=== PATIENT | male | born 1975 | race Caucasian/White ===

== ENCOUNTER 2022-10-02 21:35 | Emergency (ER) | payer OTHER ==
[2022-10-02 22:18] VITALS: RESP 18; TEMP 98.1
--- NOTE | 2022-10-02 22:58 | XR ---
EXAMINATION TYPE: XR ankle limited LT DATE OF EXAM: 10/02/2022 COMPARISON: None HISTORY: Injury TECHNIQUE: 2 view left ankle FINDINGS: Ankle mortise is intact. Soft tissues are normal. No acute fracture or dislocation is evide nt. IMPRESSION: 1. No acute osseous abnormality left ankle.
[2022-10-02 23:16] VITALS: BP 143/79; PULSE 93
[2022-10-03] MEDS ORDERED: ACET/COD 300 MG/30 MG STARTER PACK 6 TAB BTL PO STA (00:24)
--- NOTE | 2022-10-03 00:25 | ED ---
General Adult HPI - General Chief complaint: Extremity Injury, Lower Stated complaint: Left Ankle Injury Time Seen by Provider: 10/02/22 23:06 Source: patient, RN notes reviewed, old records reviewed Mode of arrival: ambulatory Limitations: no limitations - History of Present Illness Initial comments: Patient is a 46-year-old male presents emergency Department complaining of left posterior leg pain. Was playing pickle ball when he felt a popping sensation in the back of his left leg near the ankle. It difficulty walking afterwards. This occurred earlier today. After doing some research online, was concerned it may be an Achilles tendon injury. Presents for further evaluation. No neurosensory deficits. Difficulty with movement of the left ankle and foot but is able to plantar and dorsiflex, although it is weak. Lucio test is also weak. Presents for further evaluation at this time. Denies any other injuries. - Related Data Previous Rx's Medication Instructions Recorded Cyclobenzaprine [Flexeril] 5 mg PO TID PRN 5 Days #15 tablet 10/03/22 Allergies Allergy/AdvReac Type Severity Reaction Status Date / Time No Known Allergies Allergy Verified 10/02/22 22:18 Review of Systems ROS Statement: Those systems with pertinent positive or pertinent negative responses have been documented in the HPI. Review of Systems: CONST: Denies fever EYES: Denies blurry vision ENT: Denies nasal congestion C/V: Denies Chest pain RESP: Denies shortness of breath GI: Denies abdominal pain : Denies dysuria SKIN: Denies rash. MSK: Endorses left ankle pain NEURO: Denies headache ROS Other: All systems not noted in ROS Statement are negative. Past Medical History Past Medical History: No Reported History History of Any Multi-Drug Resistant Organisms: None Reported Additional Past Surgical History / Comment(s): ACL Past Psychological History: No Psychological Hx Reported Smoking Status: Never smoker Past Alcohol Use History: Occasional Past Drug Use History: None Reported General Exam - General Exam Comments Initial Comments: General: Appears in no acute distress. HEAD: Normal with no signs of head trauma. EYES: EOMI. ENT: Hearing grossly intact. RESPIRATORY: No respiratory distress. C/V: Regular rate and rhythm. ABD: Abdomen is nondistended. EXT: No obvious deformity. Tends to palpation over the Achilles tendon distally in the posterior left leg. Lucio test is weak. Able to dorsi flex as well as plantarflex, although it is weak on the left side. Neurovascular intact. SKIN: No rashes or lesions observed on exposed skin. NEURO: Alert and oriented. Limitations: no limitations Course Vital Signs 10/02/22 10/02/22 22:13 23:11 Temperature 98.1 F Pulse Rate 96 93 Respiratory 18 18 Rate Blood Pressure 136/82 143/79 O2 Sat by Pulse 98 97 Oximetry Procedures - Orthopedic Splinting/Casting Injury #1 Side: left Lower Extremity Injury Location: short leg Lower Extremity Immobilizer: posterior splint Other Orthopedic Equipment: crutches Additional Comments: Neurovascular intact following procedure Medical Decision Making - Medical Decision Making Was pt. sent in by a medical professional or institution (, PA, PERFECT BIND MACHINE OPERATOR, urgent care, hospital, or custodial...) When possible be specific @ -No Did you speak to anyone other than the patient for history (EMS, parent, family, police, friend...)? What history was obtained from this source @ -No Did you review nursing and triage notes (agree or disagree)? Why? @ -I reviewed and agree with nursing and triage notes Were old charts reviewed (outside hosp., previous admission, EMS record, old EKG, old radiological studies, urgent care reports/EKG's, custodial records)? Report findings @ -No old charts were reviewed Differential Diagnosis (chest pain, altered mental status, abdominal pain women, abdominal pain men, vaginal bleeding, weakness, fever, dyspnea, syncope, headache, dizziness, GI bleed, back pain, seizure, CVA, palpatations, mental health, musculoskeletal)? @ -MDM diagnosis mental health EKG interpreted by me (3pts min.). @ -None done X-rays interpreted by me (1pt min.). @ -Left ankle x-ray shows no obvious acute injury. CT interpreted by me (1pt min.). @ -None done U/S interpreted by me (1pt. min.). @ -None done What testing was considered but not performed or refused? (CT, X-rays, U/S, labs)? Why? @ -None What meds were considered but not given or refused? Why? @ -I offered analgesic medications which were declined. Did you discuss the management of the patient with other professionals (professionals i.e. , PA, PERFECT BIND MACHINE OPERATOR, lab, RT, psych nurse, social service director, supervisor grove, teacher, probation officer, medical case worker)? Give summary @ -No Was smoking cessation discussed for >3mins.? @ -No Was critical care preformed (if so, how long)? @ -No Were there social determinants of health that impacted care today? How? (Homelessness, low income, unemployed, alcoholism, drug addiction, transportation, low edu. Level, literacy, decrease access to med. care, senior living, rehab)? @ -No Was there de-escalation of care discussed even if they declined (Discuss DNR or withdrawal of care, Hospice)? DNR status @ -No What co-morbidities impacted this encounter? (DM, HTN, Smoking, COPD, CAD, Cancer, CVA, ARF, Chemo, Hep., AIDS, mental health diagnosis, sleep apnea, morbid obesity)? @ -None Was patient admitted / discharged? Hospital course, mention meds given and route, prescriptions, significant lab abnormalities, going to OR and other pertinent info. @ -Based on the patient's presentation and physical exam, I'm concerned for Achilles tendon injury. X-ray was already completed and was negative for any acute fracture or bony injury. Work up was started in triage. Vital signs within acceptable limits. I did discuss this with the patient, and we will splint the patient in plantar flexion, left side with a posterior leg splint and he will be given crutches with nonweightbearing instructions. Also given instructions follow up with orthopedics. He was in agreement with this plan. He is neurovascular intact following splinting. Tolerated the procedure well. Patient was given a Tylenol 3 starter pack I instructed the patient to follow up with their PCP in the next 1-3 days. I provided contact information for follow up with orthopedics. I explained that the patient should return to the emergency department if they experience any worsening symptoms. Strict return precautions were discussed with the patient. The patient expressed understanding of these instructions. I answered all questions that the patient had. The patient was discharged home in fair condition with their prescriptions and follow up information. Undiagnosed new problem with uncertain prognosis? @ -No Drug Therapy requiring intensive monitoring for toxicity (Heparin, Nitro, Insulin, Cardizem)? @ -No Were any procedures done? @ -Splinting Diagnosis/symptom? @ -Left Achilles tendon injury Acute, or Chronic, or Acute on Chronic? @ -Acute Uncomplicated (without systemic symptoms) or Complicated (systemic symptoms)? @ -Uncomplicated Side effects of treatment? @ -No Exacerbation, Progression, or Severe Exacerbation? @ -No Poses a threat to life or bodily function? How? (Chest pain, [place], [place], pneumonia, PE, COPD, DKA, ARF, appy, cholecystitis, CVA, Diverticulitis, Homicidal, Suicidal, threat to staff... and all critical care pts) @ -No Disposition Clinical Impression: Achilles tendon injury Disposition: HOME SELF-CARE Condition: Fair Instructions (If sedation given, give patient instructions): Achilles Tendon Rupture (ED) Prescriptions: Cyclobenzaprine [Flexeril] 5 mg PO TID PRN 5 Days #15 tablet PRN Reason: Pain Is patient prescribed a controlled substance at d/c from ED?: No Referrals: Nonstaff,Physician [Primary Care Provider] - 1-2 days Tony Harp MD [Medical Doctor] - 1-2 days Time of Disposition: 00:05
== END 2022-10-03 00:29 | disposition home or self-care (01) ==
LOC: EC 21:35
DX: M76.62 Achilles tendinitis, left leg (principal); X50.9XXA Other and unspecified overexertion or strenuous movements or postures, initial encounter
CPT/HCPCS: 29515; 99283